=== PATIENT | female | born 1945 | race American Indian/Alaskan Native ===

== ENCOUNTER 2017-07-14 10:36 | Emergency (ER) | payer MEDICARE ==
[2017-07-14] MEDS ORDERED: DUONEB *Not for PRN Use IH ONE (10:44)
[2017-07-14 11:04] LABS: Eosinophils % (Auto) 1.9 % (0.0-4.3); Hematocrit 49.5 % (30.3-42.9); Hemoglobin 16.8 gm/dl (10.1-14.3); Mean Corpuscular HGB Conc 34 % (30-34); Mean Corpuscular Hemoglobin 32 pg (28-32); Mean Corpuscular Volume 94 fl (79-97); Platelet Count 243 K/mm3 (140-440); Red Blood Count 5.29 M/mm3 (3.65-5.03); Red Cell Distribution Width 14.1 % (13.2-15.2); White Blood Count 11.4 K/mm3 (4.5-11.0)
[2017-07-14 11:18] LABS: Anion Gap 18 mmol/L; BUN/Creatinine Ratio 29; Blood Urea Nitrogen 20 mg/dL (7-17); Calcium 9.7 mg/dL (8.4-10.2); Carbon Dioxide 25 mmol/L (22-30); Chloride 105.9 mmol/L (98-107); Glucose 113 mg/dL (65-100); Potassium 3.5 mmol/L (3.6-5.0); Sodium 145 mmol/L (137-145)
--- NOTE | 2017-07-14 13:47 | XRay Report ---
CHEST XRAY, 2 VIEWS: History: Cough. Findings: There is mild diffuse interstitial coarsening. The lungs are hyperexpanded but clear. No infiltrate, pleural fluid or pneumothorax is detected. The cardiac silhouette and pulmonary vasculature are within normal limits for technique. The bony thorax is unremarkable. IMPRESSION: Changes consistent with COPD. No acute cardiopulmonary process.
[2017-07-14] MEDS ORDERED: XYLOCAINE 1% MPF 5 mL INFILTRATI ONE (17:03)
[2017-07-14] MEDS ORDERED: ROCEPHIN IM ONE (17:03)
--- NOTE | 2017-07-14 17:05 | Emergency Department Report ---
ED Shortness of Breath HPI - General Chief Complaint: Dyspnea/Respdistress Stated Complaint: CHEST COLD Time Seen by Provider: 07/14/17 16:33 Source: patient Mode of arrival: Ambulatory Limitations: No Limitations - History of Present Illness MD Complaint: shortness of breath, cough -: Gradual, week(s) (1) Radiation: other (none) Severity: moderate Pain Scale: 0 Consistency: constant Improves With: oxygen, bronchodilators Worsens With: exertion, coughing Context: recent URI Associated Symptoms: denies other symptoms, cough Treatments Prior to Arrival: bronchodilator - Related Data Previous Rx's Medication Instructions Recorded Last Taken Type Benzonatate [Tessalon Perles] 100 mg PO Q8HR #20 capsule 07/14/17 Unknown Rx Prednisone [predniSONE 10 mg 10 mg PO .TAPER #1 tab.ds.pk 07/14/17 Unknown Rx (6-Day Pack, 21 Tabs)] RX: ALBUTEROL Inhaler [ProAir HFA 2 puff IH QID PRN #1 inhalation 07/14/17 Unknown Rx Inhaler] Sulfamethoxazole/Trimethoprim 1 each PO BID #20 tablet 07/14/17 Unknown Rx [Bactrim DS TAB] Allergies Allergy/AdvReac Type Severity Reaction Status Date / Time No Known Allergies Allergy Unverified 07/14/17 10:43 ED Review of Systems ROS: Stated complaint: CHEST COLD Other details as noted in HPI Comment: All other systems reviewed and negative Constitutional: denies: chills, fever Eyes: denies: eye pain, eye discharge, vision change ENT: denies: ear pain, throat pain Respiratory: see HPI. denies: cough, shortness of breath, wheezing Cardiovascular: denies: chest pain, palpitations Endocrine: no symptoms reported Gastrointestinal: denies: abdominal pain, nausea, diarrhea Genitourinary: denies: urgency, dysuria, discharge Musculoskeletal: denies: back pain, joint swelling, arthralgia Skin: denies: rash, lesions Neurological: denies: headache, weakness, paresthesias Psychiatric: denies: anxiety, depression Hematological/Lymphatic: denies: easy bleeding, easy bruising ED Past Medical Hx - Past Medical History Previous Medical History?: No Hx COPD: Yes - Social History Smoking Status: Current Every Day Smoker Substance Use Type: None - Medications Home Medications: Home Medications Medication Instructions Recorded Confirmed Last Taken Type Benzonatate [Tessalon Perles] 100 mg PO Q8HR #20 capsule 07/14/17 Unknown Rx Prednisone [predniSONE 10 mg 10 mg PO .TAPER #1 tab.ds.pk 07/14/17 Unknown Rx (6-Day Pack, 21 Tabs)] RX: ALBUTEROL Inhaler [ProAir HFA 2 puff IH QID PRN #1 inhalation 07/14/17 Unknown Rx Inhaler] Sulfamethoxazole/Trimethoprim 1 each PO BID #20 tablet 07/14/17 Unknown Rx [Bactrim DS TAB] ED Physical Exam - General Limitations: No Limitations General appearance: alert, in no apparent distress - Head Head exam: Present: atraumatic, normocephalic - Eye Eye exam: Present: normal appearance, PERRL, EOMI - ENT ENT exam: Present: mucous membranes moist - Neck Neck exam: Present: normal inspection - Respiratory Respiratory exam: Present: decreased breath sounds, prolonged expiratory. Absent: respiratory distress, wheezes, rales, rhonchi, stridor, chest wall tenderness, accessory muscle use - Cardiovascular Cardiovascular Exam: Present: regular rate, normal rhythm, normal heart sounds. Absent: systolic murmur, diastolic murmur, rubs, gallop - GI/Abdominal GI/Abdominal exam: Present: soft, normal bowel sounds. Absent: distended, tenderness, guarding - Rectal Rectal exam: Present: deferred - Extremities Exam Extremities exam: Present: normal inspection, full ROM. Absent: tenderness, pedal edema, joint swelling - Back Exam Back exam: Present: normal inspection, full ROM. Absent: tenderness, CVA tenderness (R), CVA tenderness (L) - Neurological Exam Neurological exam: Present: alert, oriented X3, CN II-XII intact, normal gait - Psychiatric Psychiatric exam: Present: normal affect, normal mood, anxious - Skin Skin exam: Present: warm, dry, intact, normal color. Absent: rash ED Course Vital Signs 07/14/17 10:41 Temperature 97.6 F Pulse Rate 88 Respiratory 24 Rate Blood Pressure 120/72 O2 Sat by Pulse 94 Oximetry - Reevaluation(s) Reevaluation #1: 07/14/17 18:17 Patient is feeling better. She states she has an inhaler at home that she uses. She is out of Nebules and tubing for her nebulizer machine. ED Medical Decision Making - Lab Data Result diagrams: 07/14/17 10:47 07/14/17 10:47 - Differential Diagnosis Pneumonia, Bronchitis, COPD Exascerbation Critical Care Time: No Critical care attestation.: If time is entered above; I have spent that time in minutes in the direct care of this critically ill patient, excluding procedure time. ED Disposition Clinical Impression: Bronchitis Disposition: DC-01 TO HOME OR SELFCARE Is pt being admited?: No Does the pt Need Aspirin: No Condition: Stable Instructions: Chronic Bronchitis (ED) Prescriptions: RX: ALBUTEROL Inhaler [ProAir HFA Inhaler] 2 puff IH QID PRN #1 inhalation PRN Reason: Shortness Of Breath Benzonatate [Tessalon Perles] 100 mg PO Q8HR #20 capsule Prednisone [predniSONE 10 mg (6-Day Pack, 21 Tabs)] 10 mg PO .TAPER #1 tab.ds.pk Sulfamethoxazole/Trimethoprim [Bactrim DS TAB] 1 each PO BID #20 tablet Referrals: PRIMARY CARE, [Primary Care Provider] - 3-5 Days
[2017-07-14 19:06] VITALS: BP 137/77
== END 2017-07-14 19:09 | disposition home or self-care (01) ==
LOC: ED 10:36
DX: J40 Bronchitis, not specified as acute or chronic (principal); J44.9 Chronic obstructive pulmonary disease, unspecified; F17.200 Nicotine dependence, unspecified, uncomplicated
CPT/HCPCS: 36415; 71020; 80048; 83880; 85025; 94640; 96372; 99284; J0696

== ENCOUNTER 2021-10-04 14:37 | Emergency (ER) | payer MEDICARE ==
[2021-10-04] MEDS ORDERED: FLUORESCEIN 1 MG STRIP OP ONE (16:03)
--- NOTE | 2021-10-04 16:39 | Emergency Department Report ---
ED Rash HPI - HPI Chief Complaint: Skin Rash Stated Complaint: EYE PAIN Time Seen by Provider: 10/04/21 16:27 Duration: 2 weeks Location: Head Suspected Cause: Other (shingles) Rash Symptoms: Yes Facial Swelling, Yes Blistering, No Itching, No Tongue/Oral Swelling, No Breathing Difficulties, No Choking Sensation, No Wheezing/Dyspnea, No Peeling, No Fever Severity: moderate Other History: Chief complaint: Facial rash. HPI: This is a healthy 76-year-old female with a history of tobacco dependence who presents with facial rash for the last 2 days. She has scaly vesicular erythematous rash of her forehead causing periorbital swelling. She has decreased vision due to the swelling. She denies any pain. She does not have a PCP. ED Review of Systems ROS: Stated complaint: EYE PAIN Other details as noted in HPI Comment: All other systems reviewed and negative Constitutional: denies: chills, fever, malaise Eyes: denies: eye discharge ENT: denies: ear pain, dental pain Respiratory: denies: cough, shortness of breath Cardiovascular: denies: chest pain Gastrointestinal: denies: abdominal pain, nausea, vomiting Neurological: denies: headache, weakness ED Past Medical Hx - Past Medical History Previous Medical History?: No Hx COPD: Yes - Surgical History Past Surgical History?: Yes Hx Cholecystectomy: Yes - Family History Family history: CAD/[place] - Social History Smoking Status: Current Every Day Smoker Substance Use Type: None Other Social History: [employer]ired from [employer]. - Medications Home Medications: Home Medications Medication Instructions Recorded Confirmed Last Taken Type Albuterol Mdi (or & Nicu Only) 2 puff IH QID PRN #1 inhalation 07/14/17 Unknown Rx [ProAir HFA Inhaler] Benzonatate [Tessalon Perles] 100 mg PO Q8HR #20 capsule 07/14/17 Unknown Rx Prednisone [predniSONE 10 mg 10 mg PO .TAPER #1 tab.ds.pk 07/14/17 Unknown Rx (6-Day Pack, 21 Tabs)] Sulfamethoxazole/Trimethoprim 1 each PO BID #20 tablet 07/14/17 Unknown Rx [Bactrim DS TAB] Valacyclovir HCl [Valacyclovir] 1,000 mg PO BID 7 Days #14 10/04/21 Unknown Rx cephALEXin [Keflex] 500 mg PO Q12HR 7 Days #14 cap 10/04/21 Unknown Rx Rash Exam - Exam General: Vital signs noted. No distress. Alert and acting appropriately. HEENT: Yes Periorbital Edema, No Conjuctival Injection, No Chemosis, No Perioral Edema, No Tongue Edema, No Uvular Edema, No Compromised Airway, No Drooling Lungs: Yes Good Air Exchange, No Wheezes, No Ronchi, No Stridor, No Cough, No Retractions, No Use of Accessory Muscles Heart: Yes Regular, No Murmur Skin: Yes Excoriations, Yes Erythema, Yes Edema, Yes Encrustations, No Urticarial Rash, No Maculopapular Rash, No Morbilliform rash, No Bulla(e), No Weeping, No Tenderness, No Other (Left forehead from center temporal region with periorbital edema vesicular lesions) ED Course Vital Signs 10/04/21 14:55 Temperature 98.2 F Pulse Rate 126 H Respiratory 18 Rate Blood Pressure 132/90 [Right] O2 Sat by Pulse 99 Oximetry ED Medical Decision Making - Medical Decision Making Hyper zoster involving the face with periorbital edema. When I open patient's eyelids she had clear vision. No involvement of the nose. Perkins's sign absent. Prescribed valacyclovir. Referred to [facility] for With persistent erythema, suspect secondary bacterial infection. Prescribed Keflex Critical care attestation.: If time is entered above; I have spent that time in minutes in the direct care of this critically ill patient, excluding procedure time. ED Disposition Clinical Impression: HZV (herpes zoster virus) infection of eyelid, Herpes zoster virus infection of face and ear nerves, Cellulitis of face Disposition: 01 HOME / SELF CARE / HOMELESS Is pt being admited?: No Does the pt Need Aspirin: No Condition: Stable Instructions: Shingles, [id number] Prescriptions: cephALEXin [Keflex] 500 mg PO Q12HR 7 Days #14 cap Valacyclovir HCl [Valacyclovir] 1,000 mg PO BID 7 Days #14 Referrals: [facility] [Provider Group] - 3-5 Days
[2021-10-04 18:08] VITALS: BP 128/85
== END 2021-10-04 18:05 | disposition home or self-care (01) ==
LOC: ED 14:37
DX: B02.39 Other herpes zoster eye disease (principal); L03.211 Cellulitis of face; J44.9 Chronic obstructive pulmonary disease, unspecified; F17.200 Nicotine dependence, unspecified, uncomplicated
CPT/HCPCS: 99282